=== PATIENT | male | born 1975 | race Caucasian/White ===

== ENCOUNTER → 2019-07-10 | Outpatient (CLI) | payer BC ==
--- NOTE | 2019-07-11 17:48 | KCIC ---
ELBOW RIGHT 3V DATE: 07/10/2019 12:00 AM INDICATION: Pain, erythema COMPARISON: None. FINDINGS: Bones: There is no evidence of acute fracture or dislocation. Joints: The joint spaces are normal. There is no joint effusion. Miscellaneous: Posterior soft tissue swelling. IMPRESSION: No acute osseous abnormality. No osseous erosions. Posterior soft tissue swelling Electronically signed by: Erlin Ribeiro MD (07/11/2019 5:45 PM) [id number]
== END | disposition home or self-care (01) ==
LOC: KCIC 15:23
PROVIDERS: ATTEND Family Medicine
DX: M79.89 Other specified soft tissue disorders (principal); M25.521 Pain in right elbow
CPT/HCPCS: 73080